=== PATIENT | male | born 1940 | race Caucasian/White ===

== ENCOUNTER 2017-01-28 09:11 | Outpatient (CLI) | payer MEDICARE | END 2017-01-28 09:12 | disposition home or self-care (01) | LOC: NC 09:11 | PROVIDERS: ATTEND Family Medicine | DX: R62.7 Adult failure to thrive (principal) ==

== ENCOUNTER 2017-02-25 09:55 | Outpatient (CLI) | payer MEDICARE | END 2017-02-25 09:56 | disposition home or self-care (01) | LOC: NC 09:55 | PROVIDERS: ATTEND Family Medicine | DX: R62.7 Adult failure to thrive (principal); E11.9 Type 2 diabetes mellitus without complications; K21.9 Gastro-esophageal reflux disease without esophagitis; I10 Essential (primary) hypertension; E78.5 Hyperlipidemia, unspecified; F17.200 Nicotine dependence, unspecified, uncomplicated; Z71.3 Dietary counseling and surveillance; Z68.20 Body mass index [BMI] 20.0-20.9, adult ==